=== PATIENT | male | born 1985 | race Caucasian/White ===

== ENCOUNTER 2017-07-25 09:58 | Inpatient (IN) | payer MEDICAID, SELFPAY ==
[~2017-07-25] VITALS: Ht 160 cm; Wt 49.8 kg
[~2017-07-25 09:58] MED LIST: OLAN10TA6 PO; OLAN5TAB40 PO
[2017-07-25] MEDS ORDERED: PROZ10 PO (10:14)
[2017-07-25] MEDS ORDERED: DIAZ2 PO (10:14)
[2017-07-25 10:31] LABS: BASOPHILS # (AUTO) 0.05 K/uL (0.00-0.20); BASOPHILS % (AUTO) 0.2 % (0.0-2.0); EOSINOPHILS # (AUTO) 0.02 K/uL (0.00-0.70); EOSINOPHILS % (AUTO) 0.09 % (1.0-6.0); HEMATOCRIT 40.1 % (41-53); HEMOGLOBIN 13.6 g/dL (13.5-17.5); LYMPHOCYTES # (AUTO) 1.7 K/uL (1.0-4.8); LYMPHOCYTES % (AUTO) 7.8 % (22.0-44.0); MEAN CORPUSCULAR HEMOGLOBIN 34.5 pg (26.0-34.0); MEAN CORPUSCULAR HGB CONC 33.9 G/dL (31.0-37.0); MEAN CORPUSCULAR VOLUME 102 fL (80-100); MONOCYTES # (AUTO) 1.5 K/uL (0.1-1.0); MONOCYTES % (AUTO) 6.7 % (2.0-9.0); NEUTROPHILS # (AUTO) 18.7 K/uL (1.8-7.7); PLATELET COUNT (AUTO) 262 K/uL (150-450); RED BLOOD CELL COUNT(AUTO) 3.95 MIL/uL (4.50-5.90); RED CELL DISTRIBUTION WIDTH 14.1 % (11.5-14.5)
[2017-07-25 10:32] LABS: NEUTROPHILS % (AUTO) 85.2 % (40.0-70.0); RBC MORPHOLOGY COMMENT ABNORMAL RBC MORPH
[2017-07-25] MEDS ORDERED: OLANZapine 5 MG TABLET PO PRN (11:00)
[2017-07-25] MEDS ORDERED: FLUoxetine HCL 20 MG CAPSULE PO SCH (11:00)
[2017-07-25 11:01] LABS: ANION GAP 16 mmol/L (8-16); CALCIUM, TOTAL 8.7 mg/dL (8.8-10.5); CARBON DIOXIDE 22 mmol/L (22-29); CHLORIDE 101 mmol/L (98-107); CREATININE 1.29 mg/dL (0.60-1.30); GLOMERULAR FILTR. RATE CALC > 60 mL/min (>60); POTASSIUM 3.4 mmol/L (3.5-5.1); SODIUM SERUM 139 mmol/L (136-145); UREA NITROGEN, BLOOD 27 mg/dL (7-18)
[2017-07-25 11:06] LABS: ALANINE AMINOTRANSFERASE 62 U/L (12-78); ALBUMIN 4.7 g/dL (3.4-5.0); ASPARTATE AMINOTRANSFERASE 102 U/L (15-37); BILIRUBIN,TOTAL 1.9 mg/dL (0.1-1.0); TOTAL PROTEIN, SERUM 7.9 g/dL (6.4-8.2)
[2017-07-25] MEDS ORDERED: DIAZEPAM 10 MG TABLET PO PRN (12:00)
[2017-07-25] MEDS ORDERED: DIAZEPAM 10 MG TABLET PO SCH (12:00)
[2017-07-25] MEDS ORDERED: TUBERCULIN, PURIFIED PROTEIN DERIVATIVE 5 TU/0.1 ML SYG ID ONE (12:15)
[2017-07-25] MEDS ORDERED: GuaiFENesin/D-METHORPHAN [SUGAR-FREE] 200-20MG/10 ML SYRUP UDCUP PO PRN (12:15)
[2017-07-25] MEDS ORDERED: LOPERAMIDE HCL 2 MG CAPSULE PO PRN (12:15)
[2017-07-25] MEDS ORDERED: ACETAMINOPHEN 325 MG TABLET PO PRN (12:15)
[2017-07-25] MEDS ORDERED: MAG HYDROX/AL HYDROX/SIMETH ES 30 ML SUSPENSION UDCUP PO PRN (12:15)
[2017-07-25] MEDS ORDERED: MAGNESIUM HYDROXIDE SUSPENSION 30 ML UDCUP PO PRN (12:15)
[2017-07-25] MEDS ORDERED: PROMETHAZINE HCL 25 MG TABLET PO PRN (12:15)
[2017-07-25 14:08] LABS: APPEARANCE,URINE CLEAR (CLEAR); GLUCOSE, URINE (UA) NEGATIVE (NEGATIVE); KETONES,URINE 40 mg/dL (NEGATIVE); LEUKOCYTE ESTERASE ,URINE NEGATIVE (NEGATIVE); OCCULT BLOOD,URINE MODERATE (NEGATIVE); PH,URINE 5.5 (5.0-8.0); PROTEIN,URINE POS 1+ (NEGATIVE)
[2017-07-25 14:09] LABS: ADD UA MICROSCOPIC YES
[2017-07-25 14:20] LABS: SQUAMOUS EPITHELIAL CELL,UR Few /LPF (None Seen)
[2017-07-25 16:33] LABS: BASOPHILS # (AUTO) 0.02 K/uL (0.00-0.20); BASOPHILS % (AUTO) 0.1 % (0.0-2.0); HEMATOCRIT 38.4 % (41-53); LYMPHOCYTES # (AUTO) 1.5 K/uL (1.0-4.8); LYMPHOCYTES % (AUTO) 7.3 % (22.0-44.0); MEAN CORPUSCULAR HEMOGLOBIN 34.4 pg (26.0-34.0); MEAN CORPUSCULAR HGB CONC 33.8 G/dL (31.0-37.0); MEAN CORPUSCULAR VOLUME 102 fL (80-100); MONOCYTES # (AUTO) 1.5 K/uL (0.1-1.0); MONOCYTES % (AUTO) 7.4 % (2.0-9.0); NEUTROPHILS % (AUTO) 84.8 % (40.0-70.0); PLATELET COUNT (AUTO) 249 K/uL (150-450); RED BLOOD CELL COUNT(AUTO) 3.77 MIL/uL (4.50-5.90); RED CELL DISTRIBUTION WIDTH 14.1 % (11.5-14.5)
[2017-07-25 16:50] LABS: RBC MORPHOLOGY COMMENT ABNORMAL RBC MORPH
[2017-07-25] MEDS ORDERED: LORazepam 2 MG TABLET PO ONE (17:00)
[2017-07-25 18:05] VITALS: BP 119/76
[2017-07-25] MEDS: THIAMINE HCL 100 MG TABLET PO SCH (18:08)
[2017-07-25] MEDS: OLANZapine 5 MG TABLET PO PRN (18:18)
[2017-07-25] MEDS ORDERED: POTASSIUM CHLORIDE 20 MEQ ER TABLET PO ONE (18:45)
[2017-07-25] MEDS ORDERED: INFLUENZA VIRUS VACCINE QVS 2017-18 (3YR+)/PF 60 MCG/0.5 ML SYRINGE IM ONE (18:45)
[2017-07-25] MEDS: OLANZapine 7.5 MG TABLET PO SCH (20:26)
[2017-07-25] MEDS: DIVALPROEX SODIUM 500 MG ER TABLET PO SCH (20:26)
[2017-07-25] MEDS ORDERED: ZOLPIDEM TARTRATE 10 MG TABLET PO SCH (21:00)
[2017-07-25] MEDS ORDERED: ZOLPIDEM TARTRATE 10 MG TABLET PO PRN (21:00)
[2017-07-26 07:20] VITALS: BP 126/73
[2017-07-26] MEDS: NALTREXONE HCL 50 MG TABLET PO SCH (08:31)
[2017-07-26] MEDS: THIAMINE HCL 100 MG TABLET PO SCH ×2 (08:31→16:02)
[2017-07-26] MEDS: BACITRACIN 28.4 GM OINTMENT TP SCH ×2 (08:32→16:02)
[2017-07-26] MEDS: FOLIC ACID 1 MG TABLET PO SCH (08:32)
[2017-07-26] MEDS: OLANZapine 5 MG TABLET PO PRN ×2 (08:32→16:02)
[2017-07-26] MEDS: NITROFURANTOIN/NITROFURAN MAC 100 MG CAPSULE [MACROBID] PO SCH ×2 (08:32→16:02)
[2017-07-26] MEDS: MULTIVITAMINS WITH MINERALS, THERAPEUTIC TABLET PO SCH (08:32)
[2017-07-26] MEDS ORDERED: POTASSIUM CHLORIDE 20 MEQ ER TABLET PO ONE (09:45)
[2017-07-26] MEDS: HydrOXYzine PAMOATE 50 MG CAPSULE PO PRN (16:02)
[2017-07-26 16:42] VITALS: BP 109/64
[2017-07-26] MEDS: DIVALPROEX SODIUM 500 MG ER TABLET PO SCH (20:25)
[2017-07-26] MEDS: OLANZapine 7.5 MG TABLET PO SCH (20:25)
[2017-07-27 07:15] VITALS: BP 101/60
[2017-07-27 07:57] LABS: BASOPHILS % (AUTO) 0.4 % (0.0-2.0); EOSINOPHILS % (AUTO) 2.6 % (1.0-6.0); HEMOGLOBIN 13.1 g/dL (13.5-17.5); LYMPHOCYTES # (AUTO) 2.2 K/uL (1.0-4.8); LYMPHOCYTES % (AUTO) 25.5 % (22.0-44.0); MEAN CORPUSCULAR HEMOGLOBIN 34.3 pg (26.0-34.0); MEAN CORPUSCULAR HGB CONC 33.6 G/dL (31.0-37.0); MEAN CORPUSCULAR VOLUME 102 fL (80-100); MONOCYTES # (AUTO) 0.8 K/uL (0.1-1.0); MONOCYTES % (AUTO) 8.5 % (2.0-9.0); NEUTROPHILS # (AUTO) 5.6 K/uL (1.8-7.7); PLATELET COUNT (AUTO) 264 K/uL (150-450); RED BLOOD CELL COUNT(AUTO) 3.82 MIL/uL (4.50-5.90); RED CELL DISTRIBUTION WIDTH 14.9 % (11.5-14.5); WHITE BLOOD COUNT (AUTO) 8.8 K/uL (4.5-11.0)
[2017-07-27 08:01] LABS: RBC MORPHOLOGY COMMENT ABNORMAL RBC MORPH
[2017-07-27 08:15] LABS: ALANINE AMINOTRANSFERASE 39 U/L (12-78); ALBUMIN 3.5 g/dL (3.4-5.0); ANION GAP 5 mmol/L (8-16); ASPARTATE AMINOTRANSFERASE 20 U/L (15-37); BILIRUBIN,TOTAL 0.4 mg/dL (0.1-1.0); CALCIUM, TOTAL 8.3 mg/dL (8.8-10.5); CARBON DIOXIDE 30 mmol/L (22-29); CHLORIDE 108 mmol/L (98-107); CREATININE 0.95 mg/dL (0.60-1.30); GLOMERULAR FILTR. RATE CALC > 60 mL/min (>60); POTASSIUM 3.6 mmol/L (3.5-5.1); SODIUM SERUM 143 mmol/L (136-145); TOTAL PROTEIN, SERUM 6.6 g/dL (6.4-8.2); UREA NITROGEN, BLOOD 16 mg/dL (7-18)
[2017-07-27 08:29] VITALS: BP 105/62
[2017-07-27] MEDS: THIAMINE HCL 100 MG TABLET PO SCH ×2 (08:48→17:14)
[2017-07-27] MEDS: FOLIC ACID 1 MG TABLET PO SCH (08:48)
[2017-07-27] MEDS: MULTIVITAMINS WITH MINERALS, THERAPEUTIC TABLET PO SCH (08:48)
[2017-07-27] MEDS: NALTREXONE HCL 50 MG TABLET PO SCH (08:48)
[2017-07-27] MEDS: NITROFURANTOIN/NITROFURAN MAC 100 MG CAPSULE [MACROBID] PO SCH ×2 (08:49→17:16)
[2017-07-27] MEDS: BACITRACIN 28.4 GM OINTMENT TP SCH ×2 (08:50→17:15)
[2017-07-27] MEDS ORDERED: OLAN7.5T9 PO (11:08)
[2017-07-27] MEDS ORDERED: NALT50TA PO (11:08)
[2017-07-27] MEDS ORDERED: DIVA500T52 PO (11:08)
[2017-07-27 16:00] VITALS: BP 108/67
[2017-07-27] MEDS: HydrOXYzine PAMOATE 50 MG CAPSULE PO PRN (17:14)
[2017-07-27] MEDS ORDERED: OLANZapine 10 MG TABLET PO SCH (21:00)
[2017-07-27] MEDS: DIVALPROEX SODIUM 500 MG ER TABLET PO SCH (21:07)
[2017-07-28 06:22] VITALS: BP 107/63
[2017-07-28 08:16] VITALS: BP 102/64
[2017-07-28] MEDS: NITROFURANTOIN/NITROFURAN MAC 100 MG CAPSULE [MACROBID] PO SCH (09:00)
[2017-07-28] MEDS: HydrOXYzine PAMOATE 50 MG CAPSULE PO PRN (09:06)
[2017-07-28] MEDS: MULTIVITAMINS WITH MINERALS, THERAPEUTIC TABLET PO SCH (09:06)
[2017-07-28] MEDS: THIAMINE HCL 100 MG TABLET PO SCH (09:07)
[2017-07-28] MEDS: FOLIC ACID 1 MG TABLET PO SCH (09:07)
[2017-07-28] MEDS: NALTREXONE HCL 50 MG TABLET PO SCH (09:07)
[2017-07-28] MEDS: OLANZapine 5 MG TABLET PO PRN (09:08)
[2017-07-28] MEDS: BACITRACIN 28.4 GM OINTMENT TP SCH (09:08)
[2017-07-28] MEDS ORDERED: MACR100 PO (09:28)
[2017-07-28] MEDS ORDERED: NALT50TA6 PO (09:30)
[2017-07-28] MEDS ORDERED: DIVA500T52 PO (09:31)
== END 2017-07-28 13:30 | disposition home or self-care (01) | DRG 750 ==
LOC: EMS 10:00 → B3A 13:52
PROVIDERS: ADMIT Psychiatry & Neurology Psychiatry; ATTEND Psychiatry & Neurology Psychiatry
PROC: 3E0234Z Introduction of Serum, Toxoid and Vaccine into Muscle, Percutaneous Approach (ICD-10-PCS; principal; 2017-07-26)
DX: F25.0 Schizoaffective disorder, bipolar type (principal); Z91.19 Patient's noncompliance with other medical treatment and regimen; D72.829 Elevated white blood cell count, unspecified; F17.210 Nicotine dependence, cigarettes, uncomplicated; F15.90 Other stimulant use, unspecified, uncomplicated; F12.90 Cannabis use, unspecified, uncomplicated; Z79.899 Other long term (current) drug therapy; Z88.0 Allergy status to penicillin; Z71.6 Tobacco abuse counseling; Z71.51 Drug abuse counseling and surveillance of drug abuser; Z23 Encounter for immunization; Z81.8 Family history of other mental and behavioral disorders
CPT/HCPCS: 76700; 90471; 99285; G0480